=== PATIENT | female | born 1995 | race Caucasian/White ===

== ENCOUNTER 2017-07-20 09:36 | Emergency (ER) | payer MEDICAID ==
[2017-07-20] MEDS ORDERED: OXYCODONE-ACETAMINOPHEN 5-325 MG TABLET PO ONE (09:59)
--- NOTE | 2017-07-20 10:00 | ER Document Report ---
ED Medical Screen (RME) - General Chief Complaint: Abdominal Pain Stated Complaint: ABDOMINAL PAIN Time Seen by Provider: 07/20/17 09:51 Notes: 22-year-old female patient 3 day history of left pelvic pain getting worse despite Tylenol and ibuprofen. Pain radiates into the groin area at times with a numbness sensation. Last menstrual period was last week in June, however her periods have been very irregular recently where she will have., Stop, start bleeding again and stop she does not think she is but it does not sound like she uses control. She does have 2 children. Physical exam shows nearly point tenderness in the left lower quadrant pelvic region. Palpating the right lower quadrant causes pain in the left pelvic region. There is no CVA percussion tenderness. I have greeted and performed a rapid initial assessment of this patient. A comprehensive ED assessment and evaluation of the patient, analysis of test results and completion of the medical decision making process will be conducted by additional ED providers. TRAVEL OUTSIDE OF THE [place] IN LAST 30 DAYS: No - Related Data Allergies/Adverse Reactions: Penicillins Allergy (Verified 07/20/17 09:38) Physical Exam - Vital signs Vitals: Temp Pulse Resp BP Pulse Ox 97.7 F 79 14 125/83 99 07/20/17 09:41 07/20/17 09:41 07/20/17 09:41 07/20/17 09:41 07/20/17 09:41 Course - Vital Signs Vital signs: Temp Pulse Resp BP Pulse Ox 97.7 F 79 14 125/83 99 07/20/17 09:41 07/20/17 09:41 07/20/17 09:41 07/20/17 09:41 07/20/17 09:41
[2017-07-20 10:28] LABS: APPEARANCE,URINE CLEAR; BILIRUBIN,URINE NEGATIVE (NEGATIVE); COLOR,URINE STRAW; GLUCOSE, URINE NEGATIVE (NEGATIVE); KETONES,URINE NEGATIVE (NEGATIVE); LEUKOCYTE ESTERASE,URINE NEGATIVE (NEGATIVE); NITRITE,URINE NEGATIVE (NEGATIVE); PROTEIN,URINE NEGATIVE (NEGATIVE); URINE SPECIFIC GRAVITY 1.003; UROBILINOGEN,URINE NEGATIVE mg/dL (<2.0)
[2017-07-20 10:34] LABS: ABSOLUTE BASOPHILS # (AUTO) 0.1 10^3/uL (0.0-0.2); ABSOLUTE EOSINOPHILS # (AUTO) 0.2 10^3/uL (0.0-0.6); ABSOLUTE LYMPHOCYTES (AUTO) 2.4 10^3/uL (0.5-4.7); ABSOLUTE MONOCYTES (AUTO) 0.5 10^3/uL (0.1-1.4); ABSOLUTE NEUT (AUTO) 4.1 10^3/uL (1.7-8.2); BASOPHILS % (AUTO) 1.2 % (0-2); EOSINOPHILS % (AUTO) 2.8 % (0-6); HEMATOCRIT 37.8 % (36.0-47.0); HEMOGLOBIN 12.3 g/dL (12.0-15.5); LYMPHOCYTES % (AUTO) 32.7 % (13-45); MEAN CORPUSCULAR HEMOGLOBIN 27.1 pg (27.0-33.4); MEAN CORPUSCULAR HGB CONC 32.5 g/dL (32.0-36.0); MEAN CORPUSCULAR VOLUME 84 fl (80-97); PLATELET COUNT 436 10^3/uL (150-450); RED BLOOD COUNT 4.53 10^6/uL (3.72-5.28); SEGMENTED NEUTROPHILS % (AUTO) 56.3 % (42-78); TOTAL CELLS COUNTED % (AUTO) 100 %; WHITE BLOOD COUNT 7.3 10^3/uL (4.0-10.5)
[2017-07-20 10:37] LABS: ALANINE AMINOTRANSFERASE 34 U/L (9-52); ALBUMIN 4.4 g/dL (3.5-5.0); ALKALINE PHOSPHATASE 50 U/L (38-126); ANION GAP 8 (5-19); ASPARTATE AMINO TRANSFERASE 19 U/L (14-36); BILIRUBIN,DIRECT 0.2 mg/dL (0.0-0.4); BILIRUBIN,TOTAL 0.4 mg/dL (0.2-1.3); BLOOD UREA NITROGEN 10 mg/dL (7-20); CALCIUM 9.7 mg/dL (8.4-10.2); CARBON DIOXIDE 28 mmol/L (22-30); CHLORIDE 103 mmol/L (98-107); GLUCOSE 85 mg/dL (75-110); POTASSIUM 4.5 mmol/L (3.6-5.0); SODIUM 139.3 mmol/L (137-145); TOTAL PROTEIN 7.1 g/dL (6.3-8.2)
--- NOTE | 2017-07-20 10:59 | RADIOLOGY REPORT (SQ) ---
EXAM DESCRIPTION: U/S OB TRANSVAGINAL W/O DOP COMPLETED DATE/TIME: 07/20/2017 10:49 am REASON FOR STUDY: L pelvic pain x 3 days, getting worse, Cyst vs ect COMPARISON: None. TECHNIQUE: Transvaginal static and realtime grayscale images acquired of the pelvis. Additional heather cted spectral and color Doppler images recorded. All images stored on PACs. BHCG: Negative LIMITATIONS: None. FINDINGS: UTERUS: No visualized intrauterine . RIGHT ADNEXA: Normal ovary containing dominant follicle in demonstrating normal vascular flow. Mild to moderate free fluid. No adnexal masses. LEFT ADNEXA: Normal ovary with normal vascular flow. Mild to moderate free fluid. No adnexal masses. FREE FLUID: None. OTHER: No other significant finding. IMPRESSION: NO VISUALIZED INTRA- OR EXTRAUTERINE . ECTOPIC IS HIGHLY UNLIKELY GIVEN NEGATIVE TEST. CLINICAL FOLLOWUP RECOMMENDED. MILD TO MODERATE FREE FLUID WHICH IS LIKELY PHYSIOLOGIC AND COULD BE SECONDARY TO A RUPTURED CYST. TECHNICAL DOCUMENTATION: JOB ID: [id number] [employer]- All Rights Reserved
--- NOTE | 2017-07-20 11:28 | ER Document Report ---
ED GI/ - General Chief Complaint: Abdominal Pain Stated Complaint: ABDOMINAL PAIN Time Seen by Provider: 07/20/17 09:51 Mode of Arrival: Ambulatory Information source: Patient Notes: Patient is a 22-year-old female who presents to the ER today for left lower quadrant abdominal pain 2 days. Patient states that it is constant in nature and has given her some nausea but no vomiting. She denies any diarrhea. Burning with urination, being on her menstrual cycle. She denies any fevers or chills. She denies any history of ovarian cysts. She does not think she is but has had a regular periods. She denies any abnormal vaginal discharge. She denies being worried about any STDs. TRAVEL OUTSIDE OF THE [place] IN LAST 30 DAYS: No - Related Data Allergies/Adverse Reactions: Penicillins Allergy (Verified 07/20/17 09:38) Past Medical History - General Information source: Patient - Social History Smoking Status: Current Every Day Smoker Chew tobacco use (# tins/day): No Frequency of alcohol use: Occasional Drug Abuse: None Family History: Reviewed & Not Pertinent Patient has suicidal ideation: No Patient has homicidal ideation: No Renal/ Medical History: Denies: Hx Peritoneal Dialysis Psychiatric Medical History: Reports: Hx Depression Review of Systems - Review of Systems Constitutional: No symptoms reported EENT: No symptoms reported Cardiovascular: No symptoms reported Respiratory: No symptoms reported Gastrointestinal: See HPI Genitourinary: No symptoms reported Female Genitourinary: See HPI Musculoskeletal: No symptoms reported Skin: No symptoms reported Hematologic/Lymphatic: No symptoms reported Neurological/Psychological: No symptoms reported Physical Exam - Vital signs Vitals: Temp Pulse Resp BP Pulse Ox 97.7 F 79 14 125/83 99 07/20/17 09:41 07/20/17 09:41 07/20/17 09:41 07/20/17 09:41 07/20/17 09:41 - Notes Notes: PHYSICAL EXAMINATION: GENERAL: Well-appearing and in no acute distress. HEAD: Atraumatic, normocephalic. NECK: Normal range of motion, supple without lymphadenopathy LUNGS: CTAB and equal. No wheezes rales or rhonchi. HEART: Regular rate and rhythm without murmurs ABDOMEN: Soft, mild left lower quadrant tenderness. No guarding, no rebound BACK: no vertebral tenderness, normal ROM GI/: no CVA tenderness EXTREMITIES: Normal range of motion, no pitting edema. No cyanosis. NEUROLOGICAL: Cranial nerves grossly intact. Normal sensory/motor exams. PSYCH: Normal mood, normal affect. SKIN: Warm, Dry, normal turgor, no rashes or lesions noted Course - Re-evaluation Re-evalutation: 07/21/17 07:48 is negative today, lab work is unremarkable including a normal white blood cell count, pelvic exam was offered to patient but she declined, stating "I am not worried about any pelvic infections." Ultrasound does reveal some free fluid in the pelvis, possible ruptured ovarian cyst. No current ovarian cyst noted. No evidence of ectopic - Vital Signs Vital signs: Temp Pulse Resp BP Pulse Ox 98.1 F 80 14 120/80 100 07/20/17 12:02 07/20/17 12:02 07/20/17 12:02 07/20/17 12:02 07/20/17 12:02 - Laboratory Result Diagrams: 07/20/17 10:05 07/20/17 10:05 Laboratory results interpreted by me: 07/20/17 10:05 RDW 17.0 H Discharge - Discharge Clinical Impression: Ruptured cyst of ovary Condition: Stable Disposition: HOME, SELF-CARE Instructions: Ovarian Cyst ([facility]) Additional Instructions: Return immediately for any new or worsening symptoms. Follow up with primary care provider, call tomorrow to make followup appointment. Forms: Return to Work
[2017-07-20] MEDS ORDERED: HYDROCODONE/ACETAMINOPHEN 5-325 MG (6 TAB/ER DISP) PO PRN (11:29)
[2017-07-20] MEDS ORDERED: ONDANSETRON ODT 4 MG TAB (6 TAB/ER DISP) PO PRN (11:29)
[2017-07-20 12:03] VITALS: BP 120/80
== END 2017-07-20 12:02 | disposition home or self-care (01) ==
LOC: ER 09:36
DX: R10.32 Left lower quadrant pain (principal); N83.209 Unspecified ovarian cyst, unspecified side; R11.0 Nausea; F17.200 Nicotine dependence, unspecified, uncomplicated; Z88.0 Allergy status to penicillin
CPT/HCPCS: 36415; 76817; 80053; 81001; 84703; 85025; 99284

== ENCOUNTER 2017-07-30 10:18 | Emergency (ER) | payer MEDICAID ==
[2017-07-30] MEDS ORDERED: ONDANSETRON 4 MG TAB.RAPDIS PO ONE ×2 (10:50→10:53)
[2017-07-30] MEDS ORDERED: HYDROCODONE/ACETAMINOPHEN 5-325 MG TABLET PO ONE (10:50)
--- NOTE | 2017-07-30 10:53 | ER Document Report ---
ED Medical Screen (RME) - General Chief Complaint: Nausea/Vomiting Stated Complaint: VOMITING Time Seen by Provider: 07/30/17 10:44 Notes: This 22-year-old female patient comes emergency room complaining of aching cramping all over, nasal sinus congestion the past 2 days with fevers last night. She was seen her on 07/20/2017 left pelvic pain, normal lab work, ultrasound showing mild to moderate free fluid suggesting a recently ruptured ovarian cyst. No cysts were seen on ultrasound. She states she has never gotten better and now has these additional symptoms. She also reports she has been vomiting more for the past week and is been unable to keep down fluids. I have greeted and performed a rapid initial assessment of this patient. A comprehensive ED assessment and evaluation of the patient, analysis of test results and completion of the medical decision making process will be conducted by additional ED providers. TRAVEL OUTSIDE OF THE [place] IN LAST 30 DAYS: No - Related Data Allergies/Adverse Reactions: Penicillins Allergy (Verified 07/30/17 10:22) Home Medications: Current Home Medications Fluoxetine HCl 20 mg PO DAILY 07/30/17 [History] Hydroxyzine Pamoate [Hydroxyzine Pamoate] 25 mg PO BID 07/30/17 [History] Past Medical History - Social History Chew tobacco use (# tins/day): No Frequency of alcohol use: Occasional Drug Abuse: None Renal/ Medical History: Denies: Hx Peritoneal Dialysis Psychiatric Medical History: Reports: Hx Depression Physical Exam - Vital signs Vitals: Temp Pulse BP Pulse Ox 98.4 F 91 124/83 98 07/30/17 10:32 07/30/17 10:32 07/30/17 10:32 07/30/17 10:32 Course - Vital Signs Vital signs: Temp Pulse Resp BP Pulse Ox 98.4 F 91 124/83 98 07/30/17 10:32 07/30/17 10:32 07/30/17 10:32 07/30/17 10:32
--- NOTE | 2017-07-30 12:42 | RADIOLOGY REPORT (SQ) ---
EXAM DESCRIPTION: U/S NON-OB PELVIS TV W/O DOP COMPLETED DATE/TIME: 07/30/2017 12:22 pm REASON FOR STUDY: 07/20 mod FF, sx's bloating worse COMPARISON: Pelvic ultrasound 07/20/2017 TECHNIQUE: Dynamic and static grayscale images acquired of the pelvis via transvaginal approach and recorded on PACS. Additional selected color Doppler and spectral images recorded. No test today Negative serum test 07/20/2017 LIMITATIONS: None. FINDINGS: UTERUS: Contour normal. No mass. Uterus is 9.3 x 7.7 x 5.1 cm in size. ENDOMETRIAL STRIPE: No focal or generalized thickening. No masses. Endometrial stripe 8 mm in thickn ess CERVIX: No nabothian cysts. Closed, 3 cm in length. RIGHT OVARY: Right ovary measures 4 x 2.4 x 2.1 cm in size. On today's study, a 2.2 x 1.8 x 1.7 cm h emorrhagic cyst is present (was a nonhemorrhagic simple cyst on 07/20/2017). RIGHT OVARY DOPPLER: Normal arterial vascular flow without evidence for torsion. LEFT OVARY: No abnormal masses. Left ovary 3.3 x 1.4 x 1.6 cm in size LEFT OVARY DOPPLER: Normal arterial vascular flow without evidence for torsion. FREE FLUID: There is moderate free cul-de-sac fluid without echogenic debris OTHER: No other significant finding. IMPRESSION: Moderate free cul-de-sac pelvic fluid without echogenic debris. 2 cm hemorrhagic cyst right ovary. Corpus luteum could not be excluded TECHNICAL DOCUMENTATION: JOB ID: [id number] [employer]- All Rights Reserved
[2017-07-30] MEDS ORDERED: NORMAL SALINE 1000 ML 1,000 ML IV ONE (12:53)
[2017-07-30 13:13] LABS: ABSOLUTE BASOPHILS # (AUTO) 0.1 10^3/uL (0.0-0.2); ABSOLUTE EOSINOPHILS # (AUTO) 0.1 10^3/uL (0.0-0.6); ABSOLUTE LYMPHOCYTES (AUTO) 1.1 10^3/uL (0.5-4.7); ABSOLUTE MONOCYTES (AUTO) 0.8 10^3/uL (0.1-1.4); ABSOLUTE NEUT (AUTO) 4.7 10^3/uL (1.7-8.2); EOSINOPHILS % (AUTO) 1.4 % (0-6); HEMATOCRIT 36.7 % (36.0-47.0); HEMOGLOBIN 12.3 g/dL (12.0-15.5); LYMPHOCYTES % (AUTO) 16.5 % (13-45); MEAN CORPUSCULAR HEMOGLOBIN 27.4 pg (27.0-33.4); MEAN CORPUSCULAR HGB CONC 33.5 g/dL (32.0-36.0); MEAN CORPUSCULAR VOLUME 82 fl (80-97); MONOCYTES % (AUTO) 11.4 % (3-13); PLATELET COUNT 352 10^3/uL (150-450); RED BLOOD COUNT 4.48 10^6/uL (3.72-5.28); RED CELL DISTRIBUTION WIDTH 16.5 % (11.5-14.0); SEGMENTED NEUTROPHILS % (AUTO) 69.7 % (42-78); TOTAL CELLS COUNTED % (AUTO) 100 %; WHITE BLOOD COUNT 6.7 10^3/uL (4.0-10.5)
[2017-07-30 13:16] LABS: CHLAM PCR NOT DETECTED (NOT DETECT); GON PCR NOT DETECTED (NOT DETECT)
--- NOTE | 2017-07-30 13:19 | ER Document Report ---
ED GI/ - General Chief Complaint: Nausea/Vomiting Stated Complaint: VOMITING Time Seen by Provider: 07/30/17 10:44 Notes: The patient is a 22-year-old female, , past medical history anxiety, presents with 1 week of worsening lower abdominal pain, worse on the left side. She is also having nausea, vomiting and said that she is unable to keep any food or liquids down for the past few days. She was seen in the ER on 07/20/2017 with similar symptoms and had normal lab work and an ultrasound showing mild to moderate free fluid suggesting a recently ruptured ovarian cyst. She said that she has not gotten any better since her visit. She denies diarrhea, constipation, fevers, dysuria, hematuria, hematemesis, rash, vaginal discharge or vaginal bleeding. TRAVEL OUTSIDE OF THE [place] IN LAST 30 DAYS: No - Related Data Allergies/Adverse Reactions: Penicillins Allergy (Verified 07/30/17 10:22) Home Medications: Current Home Medications Fluoxetine HCl 20 mg PO DAILY 07/30/17 [History] Hydroxyzine Pamoate [Hydroxyzine Pamoate] 25 mg PO BID 07/30/17 [History] Past Medical History - General Information source: Patient - Social History Smoking Status: Current Every Day Smoker Chew tobacco use (# tins/day): No Frequency of alcohol use: Occasional Drug Abuse: None Family History: Reviewed & Not Pertinent Patient has suicidal ideation: No Patient has homicidal ideation: No Renal/ Medical History: Denies: Hx Peritoneal Dialysis Psychiatric Medical History: Reports: Hx Depression Review of Systems - Review of Systems Notes: REVIEW OF SYSTEMS: CONSTITUTIONAL: -fevers, -chills EENT: -eye pain, -difficulty swallowing, -nasal congestion CARDIOVASCULAR: -chest pain, -syncope. RESPIRATORY: -cough, -SOB GASTROINTESTINAL: +abdominal pain, +nausea, +vomiting, -diarrhea GENITOURINARY: -dysuria, -hematuria MUSCULOSKELETAL: -back pain, -neck pain SKIN: -rash or skin lesions. HEMATOLOGIC: -easy bruising or bleeding. LYMPHATIC: -swollen, enlarged glands. NEUROLOGICAL: -altered mental status or loss of consciousness, -headache, - neurologic symptoms PSYCHIATRIC: -anxiety, -depression. ALL OTHER SYSTEMS REVIEWED AND NEGATIVE. Physical Exam - Vital signs Vitals: Temp Pulse BP Pulse Ox 98.4 F 91 124/83 98 07/30/17 10:32 07/30/17 10:32 07/30/17 10:32 07/30/17 10:32 - Notes Notes: PHYSICAL EXAMINATION: GENERAL: Mild distress. HEAD: Atraumatic, normocephalic. EYES: Pupils equal round and reactive to light, extraocular movements intact, sclera anicteric, conjunctiva are normal. ENT: nares patent, oropharynx clear without exudates. Moist mucous membranes. NECK: Normal range of motion, supple without lymphadenopathy LUNGS: Breath sounds clear to auscultation bilaterally and equal. No wheezes rales or rhonchi. HEART: Regular rate and rhythm without murmurs ABDOMEN: Soft, moderate LLQ and mild RLQ tenderness, normoactive bowel sounds. No guarding, no rebound. No masses appreciated. EXTREMITIES: Normal range of motion, no pitting or edema. No cyanosis. NEUROLOGICAL: Cranial nerves grossly intact. Normal speech, normal gait. Normal sensory and motor exams. PSYCH: Normal mood, normal affect. SKIN: Warm, Dry, normal turgor, no rashes or lesions noted. Course - Re-evaluation Re-evalutation: Patient appears well and has had no more nausea or vomiting after Zofran and her pain is under control. Ultrasound shows free fluid in her pelvis and her known ovarian cyst. Concern for appendix rupture with the free fluid and second ER visit, so CT scan ordered. CT showed the same hemorrhagic cyst with free fluid, but normal appendix and no other acute findings. Blood work and urine are unremarkable. Pt deferred a pelvic exam until she sees her [employer]. Instructed patient to continue anti-inflammatories, Twilight for severe pain, Zofran for any nausea or vomiting and follow-up at the [facility] for further evaluation and treatment. She is comfortable with the plan. - Vital Signs Vital signs: Temp Pulse Resp BP Pulse Ox 98.4 F 91 124/83 98 07/30/17 10:32 07/30/17 10:32 07/30/17 10:32 07/30/17 10:32 - Laboratory Result Diagrams: 07/30/17 11:10 07/30/17 11:10 Laboratory results interpreted by me: 07/30/17 07/30/17 11:10 13:15 RDW 16.5 H Urine Blood SMALL H - Diagnostic Test Radiology reviewed: Image reviewed, Reports reviewed Radiology results interpreted by me: Transvaginal US: Moderate free cul-de-sac pelvic fluid without echogenic debris. 2 cm hemorrhagic cyst right ovary. Corpus luteum could not be excluded. CT A/P: Free fluid is identified in the posterior cul-de-sac which was identified on the recent pelvic ultrasound. Rim enhancing area in the right pelvis which correlates with the hemorrhagic cyst identified on the pelvic ultrasound. No other significant intra-abdominal or pelvic abnormalities were identified. Other findings as noted above. Discharge - Discharge Clinical Impression: Hemorrhagic cyst of ovary Condition: Stable Disposition: HOME, SELF-CARE Additional Instructions: Ovarian Cyst Your examination shows the presence of an ovarian cyst. This is a ball of fluid attached to the ovary. Ovarian cysts in women of child-bearing age are usually innocent. However, the cyst may cause pain when it grows or bursts. An innocent ovarian cyst will usually go away by itself. When the cyst becomes painful, you should rest. Pain medication may be required. Some women find a hot water bottle soothing. The pain usually resolves within one or two days. After menopause, an ovarian cyst may mean a tumor, and requires more aggressive evaluation -- usually surgery is recommended to remove or biopsy the cyst. A very large cyst requires evaluation at any age. Most cysts (even the innocent ones) require follow-up examination. Call the doctor or return at any time if the pain increases significantly, if you become faint, or if you experience vaginal bleeding. Prescriptions: Hydrocodone/Acetaminophen [Twilight 5-325 mg Tablet] 1 tab PO Q6H PRN #10 tablet PRN Reason: Naproxen [Naprosyn 250 mg Tablet] 500 mg PO Q12H PRN #14 tablet PRN Reason: Ondansetron [Zofran Odt 4 mg Tablet] 1 - 2 tab PO Q4H PRN #15 tab.rapdis PRN Reason: For Nausea/Vomiting Referrals: HERMAN IGNACIO MD [ACTIVE STAFF] - Follow up as needed
[2017-07-30 13:38] LABS: ALANINE AMINOTRANSFERASE 24 U/L (9-52); ALBUMIN 4.3 g/dL (3.5-5.0); ALKALINE PHOSPHATASE 63 U/L (38-126); ANION GAP 9 (5-19); ASPARTATE AMINO TRANSFERASE 21 U/L (14-36); BILIRUBIN,DIRECT 0.3 mg/dL (0.0-0.4); BILIRUBIN,TOTAL 0.7 mg/dL (0.2-1.3); BLOOD UREA NITROGEN 10 mg/dL (7-20); CALCIUM 9.6 mg/dL (8.4-10.2); CARBON DIOXIDE 25 mmol/L (22-30); CHLORIDE 104 mmol/L (98-107); GLUCOSE 92 mg/dL (75-110); POTASSIUM 4.2 mmol/L (3.6-5.0); SODIUM 138.2 mmol/L (137-145)
[2017-07-30 13:45] LABS: APPEARANCE,URINE SLIGHTLY-CLOUDY; BILIRUBIN,URINE NEGATIVE (NEGATIVE); COLOR,URINE YELLOW; GLUCOSE, URINE NEGATIVE (NEGATIVE); KETONES,URINE NEGATIVE (NEGATIVE); LEUKOCYTE ESTERASE,URINE NEGATIVE (NEGATIVE); NITRITE,URINE NEGATIVE (NEGATIVE); PROTEIN,URINE NEGATIVE (NEGATIVE); UROBILINOGEN,URINE NEGATIVE mg/dL (<2.0)
--- NOTE | 2017-07-30 14:23 | RADIOLOGY REPORT (SQ) ---
EXAM DESCRIPTION: CT ABD/PELVIS WITH IV ONLY COMPLETED DATE/TIME: 07/30/2017 1:28 pm REASON FOR STUDY: RLQ and LLQ tenderness, free fluid on US COMPARISON: Pelvic ultrasound dated 07/30/2017 TECHNIQUE: CT scan of the abdomen and pelvis performed using helical scanning technique with dynamic intravenous contrast injection. No oral contrast. Images reviewed with lung, soft tissue, and bone windows. Reconstructed coronal and sagittal MPR images reviewed. Delayed images for evaluation of the urinary system also acquired. All images stored on PACS. All CT scanners at this facility use dose modulation, iterative reconstruction, and/or weight based d osing when appropriate to reduce radiation dose to as low as reasonably achievable (ALARA). [facility]: Dose Right [facility]: CareDose [facility]: Dose Right [facility]: Teradose 4D [facility]: [employer], [place] CONTRAST TYPE AND DOSE: 70 mL Isovue 370 RENAL FUNCTION: None required. The patient is less than 50 years old. RADIATION DOSE: . LIMITATIONS: None. FINDINGS: LOWER CHEST: No significant findings. No nodules or infiltrates. LIVER: Normal size. No masses. No dilated ducts. SPLEEN: Normal size. No focal lesions. PANCREAS: No masses. No significant calcifications. No adjacent inflammation or peripancreatic fluid collections. Pancreatic duct not dilated. GALLBLADDER: No identified stones by CT criteria. No inflammatory changes to suggest cholecystitis. ADRENAL GLANDS: No significant masses or asymmetry. RIGHT KIDNEY AND URETER: No solid masses. No significant calcifications. No hydronephrosis or hyd roureter. LEFT KIDNEY AND URETER: No solid masses. No significant calcifications. No hydronephrosis or hydr oureter. AORTA AND VESSELS: No aneurysm. No dissection. Renal arteries, SMA, celiac without stenosis. RETROPERITONEUM: No retroperitoneal adenopathy, hemorrhage or masses. BOWEL AND PERITONEAL CAVITY: No masses or inflammatory changes. No peritoneal masses. APPENDIX: Normal. PELVIS: A rim enhancing area is identified in the right pelvis which correlates with the hemorrhagic cyst identified on the pelvic ultrasound. Free fluid is identified in the posterior cul-de-sac which was identified on the recent pelvic ultrasound. ABDOMINAL WALL: No masses. No hernias. BONES: No significant or acute findings. OTHER: No other significant finding. IMPRESSION: Free fluid is identified in the posterior cul-de-sac which was identified on the recent pelvic ultrasound. Rim enhancing area in the right pelvis which correlates with the hemorrhagic cyst identified on the pelvic ultrasound. No other significant intra-abdominal or pelvic abnormalities w ere identified. Other findings as noted above TECHNICAL DOCUMENTATION: JOB ID: [id number] Quality ID # [id number]: Final reports with documentation of one or more dose reduction techniques (e.g., Au tomated exposure control, adjustment of the mA and/or kV according to patient size, use of iterative reconstruction technique) 2010 [employer]- All Rights Reserved
[2017-07-30 15:15] VITALS: BP 116/67
== END 2017-07-30 15:18 | disposition home or self-care (01) ==
LOC: ER 10:18
DX: N83.201 Unspecified ovarian cyst, right side (principal); R11.2 Nausea with vomiting, unspecified; F17.200 Nicotine dependence, unspecified, uncomplicated; Z88.0 Allergy status to penicillin
CPT/HCPCS: 99284; 96360; 36415; 84703; 85025; 81025; 80053; 81001; 87491; 87591; 83605; 76830; 74177; S0119; J7030

== ENCOUNTER 2017-08-22 19:08 | Emergency (ER) | payer MEDICAID ==
[2017-08-22] MEDS ORDERED: ALBUTEROL SULFATE HFA (90 MCG/PUFF) 8 GM MDI (1 MDI/ER DISP) IH ONE (20:38)
--- NOTE | 2017-08-22 20:40 | ER Document Report ---
ED Medical Screen (RME) - General Chief Complaint: Flank Pain Stated Complaint: FLANK PAIN BOTH SIDES Time Seen by Provider: 08/22/17 20:37 Mode of Arrival: Ambulatory Information source: Patient Notes: 22-year-old female presents to ED for no urination since last night until she got to the ER states she went to the bathroom and urinated. She did not catch this specimen. She states she has had fever and chills for the last 48 hours. She states her temperature is been as high as 101.9 is been taking ibuprofen and NyQuil. She is also was vomiting all day yesterday had some Zofran left over and took one. States she has 3 or 4 those left at home. Last menstrual period was August 06. She has a history of asthma lungs are clear except for a few wheezes in the upper lobes. States she last took ibuprofen 800 mg at 1745 and 400 mg at 8 PM 30. I have greeted and performed a rapid initial assessment of this patient. A comprehensive ED assessment and evaluation of the patient, analysis of test results and completion of medical decision making process will be conducted by an additional ED providers. TRAVEL OUTSIDE OF THE [place] IN LAST 30 DAYS: No - Related Data Allergies/Adverse Reactions: Penicillins Allergy (Verified 08/22/17 19:11) Past Medical History - Social History Chew tobacco use (# tins/day): No Frequency of alcohol use: Social Drug Abuse: None Renal/ Medical History: Denies: Hx Peritoneal Dialysis Psychiatric Medical History: Reports: Hx Depression Physical Exam - Vital signs Vitals: Temp Pulse Resp BP Pulse Ox 99.6 F 94 12 127/84 H 98 08/22/17 19:25 08/22/17 19:25 08/22/17 19:25 08/22/17 19:25 08/22/17 19:25 Course - Vital Signs Vital signs: Temp Pulse Resp BP Pulse Ox 99.6 F 94 12 127/84 H 98 08/22/17 19:25 08/22/17 19:25 08/22/17 19:25 08/22/17 19:25 08/22/17 19:25
[2017-08-22] MEDS ORDERED: ALBUTEROL SULFATE 0.083% NEB 2.5 MG/3 ML AMPUL NEB SCH (20:45)
[2017-08-22 21:31] LABS: ABSOLUTE EOSINOPHILS # (AUTO) 0.2 10^3/uL (0.0-0.6); ABSOLUTE LYMPHOCYTES (AUTO) 2.4 10^3/uL (0.5-4.7); ABSOLUTE NEUT (AUTO) 4.2 10^3/uL (1.7-8.2); BASOPHILS % (AUTO) 0.5 % (0-2); EOSINOPHILS % (AUTO) 2.3 % (0-6); HEMATOCRIT 38.8 % (36.0-47.0); HEMOGLOBIN 12.6 g/dL (12.0-15.5); LYMPHOCYTES % (AUTO) 30.2 % (13-45); MEAN CORPUSCULAR HGB CONC 32.6 g/dL (32.0-36.0); MEAN CORPUSCULAR VOLUME 83 fl (80-97); MONOCYTES % (AUTO) 12.9 % (3-13); PLATELET COUNT 312 10^3/uL (150-450); RED BLOOD COUNT 4.69 10^6/uL (3.72-5.28); RED CELL DISTRIBUTION WIDTH 16.2 % (11.5-14.0); SEGMENTED NEUTROPHILS % (AUTO) 54.1 % (42-78); TOTAL CELLS COUNTED % (AUTO) 100 %; WHITE BLOOD COUNT 7.8 10^3/uL (4.0-10.5)
[2017-08-22 21:45] LABS: ALANINE AMINOTRANSFERASE 18 U/L (9-52); ALBUMIN 4.4 g/dL (3.5-5.0); ALKALINE PHOSPHATASE 65 U/L (38-126); ANION GAP 12 (5-19); ASPARTATE AMINO TRANSFERASE 16 U/L (14-36); BLOOD UREA NITROGEN 9 mg/dL (7-20); CALCIUM 9.4 mg/dL (8.4-10.2); CARBON DIOXIDE 26 mmol/L (22-30); CHLORIDE 103 mmol/L (98-107); GLUCOSE 95 mg/dL (75-110); POTASSIUM 3.7 mmol/L (3.6-5.0); SODIUM 140.8 mmol/L (137-145); TOTAL PROTEIN 6.8 g/dL (6.3-8.2)
[2017-08-22 21:49] LABS: BILIRUBIN,TOTAL < 0.1 mg/dL (0.2-1.3)
[2017-08-22 21:56] LABS: APPEARANCE,URINE CLOUDY; BILIRUBIN,URINE NEGATIVE (NEGATIVE); COLOR,URINE YELLOW; GLUCOSE, URINE NEGATIVE (NEGATIVE); KETONES,URINE NEGATIVE (NEGATIVE); LEUKOCYTE ESTERASE,URINE SMALL (NEGATIVE); NITRITE,URINE NEGATIVE (NEGATIVE); PROTEIN,URINE NEGATIVE (NEGATIVE); URINE SPECIFIC GRAVITY 1.014; UROBILINOGEN,URINE NEGATIVE mg/dL (<2.0)
--- NOTE | 2017-08-22 22:32 | ER Document Report ---
HPI - HPI Pain Level: 5 Notes: Patient is a 22-year-old female with a history of asthma who presents to the ED complaining of fever, body ache, dry nonproductive cough, occasional nasal congestion/discharge 2 days. Patient states that her body ache has been irritating her back as well. Patient states she did have a few episodes of vomiting yesterday but that has since resolved. She has been using over-the- counter meds with some relief. Patient states that she is primarily here to get an inhaler and to get evaluated for the flu. She denies any other significant cardiopulmonary medical history. Denies any headache, neck pain, sore throat, chest pain, palpitations, syncope, shortness of breath, wheeze, dyspnea, abdominal pain, current nausea/vomiting/diarrhea, urinary retention, dysuria, hematuria, loss of control of bowel or bladder, numbness/tingling, saddle anesthesia, muscle paralysis/weakness, or rash. - ROS Systems Reviewed and Negative: Yes All other systems reviewed and negative - DERM Skin Color: Normal, [place] Past Medical History - General Information source: Patient - Social History Smoking Status: Unknown if Ever Smoked Chew tobacco use (# tins/day): No Frequency of alcohol use: Social Drug Abuse: None Family History: Reviewed & Not Pertinent Patient has suicidal ideation: No Patient has homicidal ideation: No Renal/ Medical History: Denies: Hx Peritoneal Dialysis Psychiatric Medical History: Reports: Hx Depression Vertical Provider Document - CONSTITUTIONAL Agree With Documented VS: Yes Notes: PHYSICAL EXAMINATION: GENERAL: Well-appearing, well-nourished and in no acute distress. A&Ox4. Answers questions appropriately. Moves comfortably w/o notable distress HEAD: Atraumatic, normocephalic. EYES: Pupils equal round and reactive to light, extraocular movements intact, sclera anicteric, conjunctiva are normal. ENT: EAC clear b/l. TM's intact b/l without erythema, fluid, or perforation. Nares patent and with clear discharge. oropharynx no erythema without exudates. No tonsilar hypertrophy without erythema or exudate. No palatine shift. Uvula midline. No tongue protrusion. No drooling, hoarseness, or airway compromise. Moist mucous membranes. No sinus tenderness. NECK: Normal range of motion, supple without lymphadenopathy. No rigidity/ meningismus. LUNGS: Breath sounds clear to auscultation bilaterally and equal. No wheezes rales or rhonchi. No retractions HEART: Regular rate and rhythm without murmurs, rubs, gallops. ABDOMEN: Soft, nontender, nondistended abdomen. No guarding, no rebound. No masses appreciated. Normal bowel sounds present. No CVA tenderness bilaterally. No hepatosplenomegaly. NEUROLOGICAL: Normal speech, normal gait. Normal sensory, motor exams PSYCH: Normal mood, normal affect. SKIN: Warm, Dry, normal turgor, no rashes or lesions noted. - INFECTION CONTROL TRAVEL OUTSIDE OF THE [place] IN LAST 30 DAYS: No - RESPIRATORY O2 Sat by Pulse Oximetry: 98 Course - Re-evaluation Re-evalutation: 08/22/17 22:29 Patient is an afebrile, well-hydrated, 22-year-old female who presents ED with acute URI, suspect influenza. Vitals are stable. PE is otherwise unremarkable. CBC, CMP unremarkable for acute pathology. UA showed small leuks and 15 wbc, but i suspect contaminant as she is otherwise asymptomatic. We will hold off on covering her with an antibiotic for her UA until a Cx returns. No other labs or imaging warranted at this time based on H&P. Patient has a h /o asthma, but no other significant cardiopulmonary or immunocompromised medical conditions. Patient's lungs are clear to auscultation bilaterally without tachycardia, hypoxia, or tachypnea. Pt was given two breathing treatments in the ED. Patient is tolerating p.o. without any difficulties. Low suspicion for any meningitis, sepsis, peritonsillar/pharyngeal abscess, respiratory compromise, severe dehydration, or other emergent systemic condition at this time. Patient is aware this condition can change from initial presentation and she needs to monitor symptoms closely. I thoroughly reviewed the risks and benefits as well as side effects of Tamiflu with the patient. Patient still would like a prescription of the Tamiflu. I will send her home with a prescription for an albuterol inhaler as well. Conservative measures otherwise for symptoms. Recheck with your PCM in 3-5 days. Return to the ED with any worsening/concerning symptoms otherwise as reviewed in discharge. Patient is in agreement. - Vital Signs Vital signs: Temp Pulse Resp BP Pulse Ox 99.6 F 94 12 127/84 H 98 08/22/17 19:25 08/22/17 19:25 08/22/17 19:25 08/22/17 19:25 08/22/17 19:25 - Laboratory Result Diagrams: 08/22/17 21:10 08/22/17 21:10 Laboratory results interpreted by me: 08/22/17 08/22/17 08/22/17 21:10 21:10 21:10 RDW 16.2 H Total Bilirubin < 0.1 L Urine Blood SMALL H Ur Leukocyte Esterase SMALL H Discharge - Discharge Clinical Impression: Acute URI, Influenza Condition: Stable Disposition: HOME, SELF-CARE Instructions: Influenza ([facility]), Upper Respiratory Illness ([facility]) Additional Instructions: Maintain adequate fluid intake Take meds as directed tylenol/ibuprofen as needed over the counter cold medication as needed for symptoms Humidified air may help Wash your hands regularly Wear a mask when coughing F/u: with your PCM in 3-5 days for a recheck Return to the ED with any fever, worsening pain, chest pain, palpitations, syncope, worsening RAMSAY, neck pain/stiffness, shortness of breath, wheezing, drooling, trouble swallowing/breathing, abdominal pain, n/v/d, rash, or worsening/concerning symptoms otherwise. Prescriptions: Albuterol Sulfate [Proair HFA Inhalation Aerosol 8.5 gm MDI] 2 puff IH Q4H PRN # 1 mdi PRN Reason: Oseltamivir Phosphate [Tamiflu 75 mg Capsule] 75 mg PO BID #10 capsule Forms: Elevated Blood Pressure Referrals: [facility] [Provider Group] - Follow up as needed [facility] [Provider Group] - Follow up as needed
[2017-08-22 23:05] VITALS: BP 125/78
== END 2017-08-22 23:02 | disposition home or self-care (01) ==
LOC: ER 19:08
DX: J11.1 Influenza due to unidentified influenza virus with other respiratory manifestations (principal); J45.909 Unspecified asthma, uncomplicated
CPT/HCPCS: 36415; 80053; 81001; 81025; 85025; 94640; 99284

== ENCOUNTER 2018-03-09 21:33 | Inpatient (IN) | payer MEDICAID ==
[2018-03-09] MEDS ORDERED: IPRATROPIUM/ALBUTEROL 0.5-2.5 MG/3 ML AMPUL NEB ONE (21:37)
[2018-03-09] MEDS ORDERED: METHYLPREDNISOLONE INJ 125 MG/2 ML SDV ONE (21:42)
[2018-03-09] MEDS ORDERED: ALBUTEROL SULFATE 0.083% NEB 2.5 MG/3 ML AMPUL NEB ONE ×3 (21:42→22:58)
[2018-03-09] MEDS ORDERED: MAGNESIUM SULFATE/D5W 2 GM/200 ML RTUPB IV ONE (21:42)
[2018-03-09] MEDS ORDERED: NORMAL SALINE 1000 ML 1,000 ML IV ONE (21:48)
[2018-03-09] MEDS ORDERED: METHYLPREDNISOLONE INJ 125 MG/2 ML SDV IV ONE (21:49)
[2018-03-09] MEDS: MAGNESIUM SULFATE/D5W 1 GM/100 ML RTUPB IV SCH ×2 (21:50→22:06)
--- NOTE | 2018-03-09 21:51 | ER Document Report ---
ED General - General Chief Complaint: Asthma Exacerbation Stated Complaint: BREATHING DIFFICULTY Time Seen by Provider: 03/09/18 21:48 Notes: Patient is a 23-year-old female with a past medical history of asthma who presents in respiratory distress. Initial history is very limited as the patient is almost completely unable to speak due to her degree of respiratory distress. She states that her symptoms started earlier today and have been progressively worsening. She used her albuterol at home but states that this did not help. No additional history can be obtained due to the degree of distress. Per chart review the patient has been intubated once in the past TRAVEL OUTSIDE OF THE [place] IN LAST 30 DAYS: No - Related Data Allergies/Adverse Reactions: Penicillins Allergy (Verified 08/22/17 19:11) Past Medical History - General Information source: Patient - Social History Smoking Status: Former Smoker Frequency of alcohol use: None Drug Abuse: None Family History: Reviewed & Not Pertinent Renal/ Medical History: Denies: Hx Peritoneal Dialysis Psychiatric Medical History: Reports: Hx Depression Review of Systems - Review of Systems Notes: Constitutional: Negative for fever. HENT: Negative for sore throat. Eyes: Negative for visual changes. Cardiovascular: Negative for chest pain. Respiratory: Positive for shortness of breath. Gastrointestinal: Negative for abdominal pain, vomiting or diarrhea. Genitourinary: Negative for dysuria. Musculoskeletal: Negative for back pain. Skin: Negative for rash. Neurological: Negative for headaches, weakness or numbness. 10 point ROS negative except as marked above and in HPI. Physical Exam - Vital signs Vitals: Resp Pulse Ox 29 H 100 03/09/18 21:41 03/09/18 21:41 Interpretation: Hypoxic, Tachypneic Notes: PHYSICAL EXAMINATION: GENERAL: Moderate to severe respiratory distress, appears extremely uncomfortable HEAD: Atraumatic, normocephalic. EYES: Pupils equal round and reactive to light, extraocular movements intact, sclera anicteric, conjunctiva are normal. ENT: nares patent, oropharynx clear without exudates. Moderately dry mucous membranes. NECK: Normal range of motion, supple without lymphadenopathy LUNGS: Severe tachypnea, distress, intercostal and supraclavicular retractions. Scattered wheezing in the extra Tory phase in all lung santana. Globally diminished air movement throughout. Unable to speak in more than 1-2 words per sentence without taking a breath. HEART: Regular tachycardia without murmurs ABDOMEN: Soft, nontender, normoactive bowel sounds. No guarding, no rebound. No masses appreciated. EXTREMITIES: Normal range of motion, no pitting or edema. No cyanosis. NEUROLOGICAL: No focal neurological deficits. Moves all extremities spontaneously and on command. PSYCH: Moderately anxious SKIN: Warm, Dry, normal turgor, no rashes or lesions noted. Course - Re-evaluation Re-evalutation: 03/09/18 21:49 Patient presents in severe respiratory distress, almost unable to speak. She is breathing approximately 40 times per minute, saturating 90% on room air or intercostal retractions are present. She has air movement throughout but it is tight with diffuse expiratory wheezing in all lung santana. The patient was immediately assessed. She has been immediately placed on a continuous nebulizer of albuterol, ipratropium. An IV will be established and 2 g of magnesium will be rapidly infused over 20 minutes. The patient will also receive 125 mg of Solu-Medrol. We will also start IV fluids. Will continue to reassess the patient at regular intervals. I anticipate that she may require additional interventions including low-dose ketamine and possibly BiPAP. 03/09/18 22:10 Patient has had significant improvement in her work of breathing, continues to have coarse wheezing all lung santana but much improved air movement. Continue on continuous albuterol nebulizers at this point. Will defer BiPAP or ketamine at this time point. Will continue to reassess at regular intervals. Chest x- ray is clear without evidence of a pneumothorax or infiltrate. 03/09/18 22:59 Patient's work of breathing has continued to markedly improve although she continues to have wheezing in all lung santana. 10 mg of additional albuterol has been ordered. Magnesium and Solu-Medrol have already been infused. 03/09/18 23:30 Patient has the best lung examination that I have heard thus far at this point with effectively no wheezing, only mild tachypnea although she remains quite tachycardic likely secondary to the large amount of beta agonist that have been given. Will trial her off nebulizer therapy and monitor for at least 1 hour. 03/10/18 01:32 Patient has been observed for 2 hours off of nebulizers and has unfortunately begun to become tachypneic again. Repeat lung examination shows diffuse wheezing in all lung santana. I have reinitiated a duo nebulizer. At this point the patient has been discussed with the hospitalist for admission as she has failed her observation. - Vital Signs Vital signs: Temp Pulse Resp BP Pulse Ox 98.1 F 27 H 108/46 L 98 03/09/18 22:00 03/10/18 00:01 03/10/18 00:00 03/10/18 00:01 - Laboratory Result Diagrams: 03/09/18 21:35 03/09/18 21:35 Laboratory results interpreted by me: 03/09/18 03/09/18 21:35 21:35 WBC 15.8 H MCV 79 L MCH 25.8 L RDW 18.3 H Absolute Neutrophils 11.9 H Glucose 66 L - Diagnostic Test Radiology reviewed: Image reviewed, Reports reviewed Radiology results interpreted by me: 03/09/18 22:59 Chest x-ray: No acute infiltrate or pneumothorax Critical Care Note - Critical Care Note Total time excluding time spent on procedures (mins): 40 Comments: Critical care time spent obtaining history from patient or surrogate, discussions with consultants, development of treatment plan with patient or surrogate, evaluation of patient's response to treatment, examination of patient , ordering and performing treatments and interventions, ordering and review of laboratory studies, re-evaluation of patient's condition, ordering and review of radiographic studies and review of old charts Discharge - Discharge Clinical Impression: Respiratory distress Asthma exacerbation Qualifiers: Asthma severity: moderate Asthma persistence: persistent Qualified Code(s): J45.41 - Moderate persistent asthma with (acute) exacerbation Condition: Fair Disposition: ADMITTED INPATIENT Admitting Provider: Hospitalist Unit Admitted: Telemetry
[2018-03-09 22:01] LABS: ABSOLUTE BASOPHILS # (AUTO) 0.1 10^3/uL (0.0-0.2); ABSOLUTE EOSINOPHILS # (AUTO) 0.2 10^3/uL (0.0-0.6); ABSOLUTE LYMPHOCYTES (AUTO) 2.7 10^3/uL (0.5-4.7); ABSOLUTE MONOCYTES (AUTO) 0.9 10^3/uL (0.1-1.4); ABSOLUTE NEUT (AUTO) 11.9 10^3/uL (1.7-8.2); BASOPHILS % (AUTO) 0.6 % (0-2); EOSINOPHILS % (AUTO) 1.4 % (0-6); HEMOGLOBIN 12.1 g/dL (12.0-15.5); LYMPHOCYTES % (AUTO) 17.3 % (13-45); MEAN CORPUSCULAR HEMOGLOBIN 25.8 pg (27.0-33.4); MEAN CORPUSCULAR HGB CONC 32.7 g/dL (32.0-36.0); MEAN CORPUSCULAR VOLUME 79 fl (80-97); MONOCYTES % (AUTO) 5.5 % (3-13); PLATELET COUNT 374 10^3/uL (150-450); RED BLOOD COUNT 4.69 10^6/uL (3.72-5.28); RED CELL DISTRIBUTION WIDTH 18.3 % (11.5-14.0); SEGMENTED NEUTROPHILS % (AUTO) 75.2 % (42-78); TOTAL CELLS COUNTED % (AUTO) 100 %; WHITE BLOOD COUNT 15.8 10^3/uL (4.0-10.5)
[2018-03-09 22:14] LABS: ANION GAP 14 (5-19); BLOOD UREA NITROGEN 9 mg/dL (7-20); CARBON DIOXIDE 24 mmol/L (22-30); CHLORIDE 105 mmol/L (98-107); GLUCOSE 66 mg/dL (75-110); POTASSIUM 3.6 mmol/L (3.6-5.0); SODIUM 143.1 mmol/L (137-145)
--- NOTE | 2018-03-09 22:36 | RADIOLOGY REPORT (SQ) ---
EXAM DESCRIPTION: CHEST SINGLE VIEW COMPLETED DATE/TIME: 03/09/2018 10:13 pm REASON FOR STUDY: sob COMPARISON: None. EXAM PARAMETERS: NUMBER OF VIEWS: One view. TECHNIQUE: Single frontal radiographic view of the chest acquired. RADIATION DOSE: NA LIMITATIONS: None. FINDINGS: LUNGS AND PLEURA: No opacities, masses or pneumothorax. No pleural effusion. MEDIASTINUM AND HILAR STRUCTURES: No masses. Contour normal. HEART AND VASCULAR STRUCTURES: Heart normal in size. Normal vasculature. BONES: No acute findings. HARDWARE: None in the chest. OTHER: No other significant finding. IMPRESSION: NO ACUTE RADIOGRAPHIC FINDING IN THE CHEST. TECHNICAL DOCUMENTATION: JOB ID: [id number] [place]-[id number] 2010 [employer]- All Rights Reserved Reading location - IP/workstation name: [email or web address]
[2018-03-09] MEDS ORDERED: KETOROLAC TROMETHAMINE INJ/PF 30 MG/1 ML SDV IV ONE (22:59)
[2018-03-10] MEDS ORDERED: IPRATROPIUM/ALBUTEROL 0.5-2.5 MG/3 ML AMPUL NEB ONE (01:38)
[2018-03-10] MEDS ORDERED: TEMAZEPAM 7.5 MG CAPSULE PO PRN (02:21)
[2018-03-10] MEDS ORDERED: PROMETHAZINE HCL INJ 25 MG/1 ML VIAL IV PRN ×2 (02:21→14:30)
[2018-03-10] MEDS ORDERED: LEVALBUTEROL HCL NEB 0.63 MG/3 ML AMPUL NEB PRN (02:21)
[2018-03-10] MEDS ORDERED: MAG HYDROX/AL HYDROX/SIMETH SUSP 30 ML UDCUP PO PRN (02:21)
[2018-03-10] MEDS ORDERED: ACETAMINOPHEN 325 MG TABLET PO PRN (02:21)
[2018-03-10] MEDS: KETOROLAC TROMETHAMINE INJ/PF 30 MG/1 ML SDV IV PRN ×3 (02:39→20:09)
--- NOTE | 2018-03-10 02:41 | PDOC H&P ---
History of Present Illness Admission Date/PCP: 03/10/18 01:45 None Patient complains of: SOB History of Present Illness: HARLEY REBOLLEDO is a 23 year old female who comes to the emergency department with worsening shortness of breath. Tells me that for the last 10 days she quit smoking as she was feeling her asthma flaring. 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 She went home and she could barely breathe, she was unable to speak in full sentences, was severely wheezing, this was associated with chills and nausea along with runny nose. Denies a sputum, fever, vomiting. She used to have Ventolin at home but ran out of these inhaler and she does not follow with any primary care provider. The emergency department noted very tachypneic at 40 bpm, using intercostal muscles, patient has history of intubation in the past, given 125 mg of IV Solu- Medrol, IV magnesium. The patient improved, was observed for 2 hours with no nebulizer treatments and was becoming tachypneic again. By the time I went to see her she was doing better, saturating 100% on room air. Still mild tachypneic with wheezing. Past Medical History Pulmonary Medical History: Reports: Asthma Psychiatric Medical History: Reports: Depression Past Surgical History Past Surgical History: Reports: None Social History Smoking Status: Former Smoker - Patient stop smoking for the last 10 days as she was feeling sick Frequency of Alcohol Use: Rare Hx Recreational Drug Use: No Past Social History Note: Patient lives with her and 2 kids. Family History Family History: Reviewed & Not Pertinent Parental Family History Reviewed: No Children Family History Reviewed: NA Sibling(s) Family History Reviewed.: NA Medication/Allergy Home Medications: Fluoxetine HCl 20 mg PO DAILY 07/30/17 Hydrocodone/Acetaminophen [[place] 5-325 mg Tablet] 1 tab PO Q6H PRN #10 tablet Hydroxyzine Pamoate [Hydroxyzine Pamoate] 25 mg PO BID 07/30/17 Naproxen [Naprosyn 250 mg Tablet] 500 mg PO Q12H PRN #14 tablet 07/30/17 Ondansetron [Zofran Odt 4 mg Tablet] 1 - 2 tab PO Q4H PRN #15 tab.rapdis Albuterol Sulfate [Proair HFA Inhalation Aerosol 8.5 gm MDI] 2 puff IH Q4H PRN # 1 mdi 08/22/17 Oseltamivir Phosphate [Tamiflu 75 mg Capsule] 75 mg PO BID #10 capsule 08/22/17 Allergies/Adverse Reactions: Penicillins Allergy (Verified 08/22/17 19:11) Review of Systems Review of Systems: As outlined in the HPI, all others negative Physical Exam Vital Signs: Temp Pulse Resp BP Pulse Ox 98.1 F 27 H 108/46 L 98 03/09/18 22:00 03/10/18 00:01 03/10/18 00:00 03/10/18 00:01 Additional comments: General appearance: Well-developed, well-nourished, alert and cooperative, and appears to be in no acute distress Head: Normocephalic Eyes: PEERL, EOMI, vision is grossly intact. Ears: External auditory canal and tympanic membranes clear, hearing grossly intact. Nose: No nasal discharge. Throat: Oral cavity and pharynx normal. No inflammation, swelling, exudate or lesions. Neck: Neck supple, nontender without lymphadenopathy, masses or thyromegaly. Cardiac: Normal S1 and S2. No S3, S4 or murmurs. Rhythm is regular. There is no peripheral edema, cyanosis or pallor. Extremities are warm and well perfused. Capillary refill is less than 2 seconds. No carotid bruits. Lungs: Bilateral air entry with mild to moderate wheezing, do not appreciate rhonchi or crackles or diminished breath sounds. Not using accessory muscles. Abdomen: Positive bowel sounds. Soft. Nondistended, nontender. No guarding or rebound. No masses. No hepatosplenomegaly Extremities: No significant deformity or joint abnormality. No edema. Peripheral pulses intact. No varicosities. Neurological: Cranial nerves II through XII grossly intact. Strength and sensation symmetric and intact throughout. Reflexes 2+ throughout. Skin: Skin normal color, texture and turgor with no lesions or eruptions, warm and dry. Psychiatric: The mental examination revealed the patient was oriented to person , place, and time. The patient was able to demonstrate good judgment on recent , without hallucinations, abnormal affect or abnormal behaviors. Results Laboratory Results: 03/09/18 03/09/18 21:35 21:35 WBC 15.8 H RBC 4.69 Hgb 12.1 Hct 37.0 MCV 79 L MCH 25.8 L MCHC 32.7 RDW 18.3 H Plt Count 374 Seg Neutrophils % 75.2 Lymphocytes % 17.3 Monocytes % 5.5 Eosinophils % 1.4 Absolute Neutrophils 11.9 H Absolute Lymphocytes 2.7 Absolute Monocytes 0.9 Absolute Eosinophils 0.2 Absolute Basophils 0.1 Sodium 143.1 Potassium 3.6 Chloride 105 Carbon Dioxide 24 Anion Gap 14 BUN 9 Creatinine 0.75 Est GFR ( Amer) > 60 Est GFR (Non-Af Amer) > 60 Glucose 66 L Calcium 10.0 Impressions: Chest X-Ray 03/09/18 21:49 IMPRESSION: NO ACUTE RADIOGRAPHIC FINDING IN THE CHEST. Assessment & Plan - Diagnosis (1) Asthma exacerbation Qualifiers: Asthma severity: moderate Asthma persistence: persistent Qualified Code(s ): J45.41 - Moderate persistent asthma with (acute) exacerbation Is this a current diagnosis for this admission?: Yes Plan: Patient comes initially on respiratory distress secondary to asthma exacerbation. Several doses of nebulizer treatments given along with IV steroids and IV magnesium. Patient notably improved but not enough to go home. We will give the patient under observation, on telemetry monitoring, with Xopenex as needed as her heart rate has increased between 100- 120s, will continue with IV steroids. Oxygen protocol via nasal cannula. I anticipate patient will probably be ready to be discharged this evening. - Time Time Spent: 30 to 50 Minutes
[2018-03-10] MEDS ORDERED: MORPHINE SULFATE 10 MG/ML INJ ONE (04:10)
[2018-03-10] MEDS ORDERED: MORPHINE SULFATE 10 MG/ML INJ IV ONE (05:00)
[2018-03-10] MEDS: METHYLPREDNISOLONE INJ 125 MG/2 ML SDV IV SCH ×2 (06:04→14:57)
--- NOTE | 2018-03-10 08:01 | EKG REPORT ---
SEVERITY:- BORDERLINE ECG - SINUS RHYTHM PROBABLE LEFT ATRIAL ABNORMALITY : Confirmed by: Jl Santos MD 10-Mar-2018 08:01:25
[2018-03-10] MEDS ORDERED: ENOXAPARIN SODIUM INJ 40 MG/0.4 ML DISP.SYRIN SUBCUT SCH (10:00)
[2018-03-10] MEDS ORDERED: ALPRAZOLAM 0.5 MG TABLET PO ONE (11:49)
--- NOTE | 2018-03-10 13:11 | EKG REPORT ---
SEVERITY:- BORDERLINE ECG - SINUS RHYTHM PROBABLE LEFT ATRIAL ABNORMALITY : Confirmed by: Jl Santos MD 10-Mar-2018 13:10:29
[2018-03-10] MEDS ORDERED: LEVALBUTEROL HCL NEB 1.25 MG/3 ML AMPUL NEB PRN (13:22)
--- NOTE | 2018-03-10 16:10 | RADIOLOGY REPORT (SQ) ---
EXAM DESCRIPTION: CTA CHEST COMPLETED DATE/TIME: 03/10/2018 4:00 pm REASON FOR STUDY: eval for PE, nodules, interstitial disease COMPARISON: None. TECHNIQUE: CT scan of the chest performed using helical scanning technique with dynamic intravenous contrast injection. Images reviewed with lung, soft tissue and bone windows. Reconstructed coronal and sagittal MPR images reviewed. Additional 3 dimensional post-processing performed to develop Maximal Intensity Projection images (TX P). All images stored on PACS. All CT scanners at this facility use dose modulation, iterative reconstruction, and/or weight based d osing when appropriate to reduce radiation dose to as low as reasonably achievable (ALARA). [facility]: Dose Right [facility]: CareDose [facility]: Dose Right [facility]: Teradose 4D [facility]: Audiotoniq CONTRAST TYPE AND DOSE: contrast/concentration: Isovue 350.00 mg/ml; Total Contrast Delivered: 65.0 ml; Total Saline Delivered: 100.0 ml Contrast bolus optimized for the pulmonary arteries. Not diagnostic for the aorta. RENAL FUNCTION: GFR > 60. RADIATION DOSE: CT Rad equipment meets quality standard of care and radiation dose reduction techniq ues were employed. CTDIvol: 14.3 - 16.5 mGy. DLP: 533 mGy-cm. . LIMITATIONS: None. FINDINGS: LUNGS AND PLEURA: No masses, infiltrates, or pneumothorax. No pleural effusions or pleura l calcifications. AORTA AND GREAT VESSELS: No aneurysm. Contrast bolus not optimized for the aorta. HEART: No pericardial effusion. No significant coronary artery calcifications. PULMONARY ARTERIES: No emboli visualized in the main pulmonary arteries or the segmental branches. HILAR AND MEDIASTINAL STRUCTURES: No identified masses or abnormal nodes. HARDWARE: None in the chest. UPPER ABDOMEN: No significant findings. Limited exam. THYROID AND OTHER SOFT TISSUES: No masses. No adenopathy. BONES: No acute or significant finding. 3D MIPS: Confirm above findings. OTHER: No other significant finding. IMPRESSION: NORMAL CTA OF THE CHEST. NO PULMONARY EMBOLI. COMMENT: Quality ID # [id number]: Final reports with documentation of one or more dose reduction techniques (e.g., Automated exposure control, adjustment of the mA and/or kV according to patient size, use of iterative reconstruction technique) TECHNICAL DOCUMENTATION: JOB ID: [id number] [employer]- All Rights Reserved Reading location - IP/workstation name: [email or web address]
[2018-03-10 17:56] VITALS: BP 121/70
[2018-03-10] MEDS ORDERED: LANSOPRAZOLE 30 MG TAB.RAP.DR PO SCH (19:00)
[2018-03-10] MEDS ORDERED: ALBUTEROL SULFATE HFA (90 MCG/PUFF) 200 PUFF/8.5 GM MDI IH PRN (21:00)
[2018-03-10] MEDS ORDERED: FLUTICASONE/SALMETEROL DISKUS 250-50 MCG/DOSE IH SCH (22:00)
--- NOTE | 2018-03-10 23:07 | Progress Note ---
<RELL MCINTYRE - Last Filed: 03/10/18 23:04> Provider Note Provider Note: 23 y.o. 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 Moderate wheezing in all lung santana. Patient appears comfortable resting in bed on room air. The patient states that DuoNebs make her feel anxious and jittery, nursing staff reports tachycardia associated with Duonebs. Agree with heeler's plan of care: 1. Acute respiratory distress: Secondary to asthma exacerbation. Supplemental O2 for SPO2<93%. Scheduled steroids. Scheduled and PRN nebulizers (Duoneb or xopenex). Endorses dry cough. Consulted pulmonary, Dr. Esquivel, appreciate his recommendations. 2. Chest pain: Patient reports R anterior chest wall pain with inhalation, plan for CT to r/o PE. EKG shows STach. Troponin < 0.012. 3. Anxiety: PRN xanax <MAIKEL TREADWELL - Last Filed: 03/18/18 18:35> Assessment/Plan - Assessment/Plan Assessment: I have discussed this patient with MARY LOU Mcintyre. I am in agreement with her evaluation and plan.
--- NOTE | 2018-03-11 08:26 | PROGRESS NOTE E ---
Progress Note NAME: HARLEY REBOLLEDO : 1995 AGE: 23Y DATE: 03/10/2018 ROOM: 414 SUBJECTIVE: The patient is a 23-year-old female who came in with severe distress, wheezing, chest tightness, following exposure at work to chemicals and bleach and cleaning agents. The patient was able to go home, but her breathing got worse and thus the patient went to the emergency room. When in the emergency room, the patient was tachypneic, breathing about 40 breaths per minute, using intercostal muscles. The patient was given nebulizer treatment, IV Solu-Medrol 125 mg, and IV magnesium. Appeared to improve. However, later upon reevaluation, the patient was still tachypneic and wheezing, and the patient was admitted. The patient has a history of endotracheal intubation in the past. PAST MEDICAL HISTORY: 1. History of severe asthma requiring endotracheal intubation. 2. History of depression. 3. No history of narcotic use. PAST SURGICAL HISTORY: None. SOCIAL HISTORY: The patient quit smoking about 10 days ago. Drinks alcohol occasionally. Denies illicit drug use. The patient lives with her and 2 kids. FAMILY HISTORY: Unremarkable. ALLERGIES: Penicillin. MEDICATIONS AT HOME: 1. Fluoxetine. 2. [place]. 3. Hydroxyzine. 4. Naproxen. 5. Zofran. 6. Albuterol inhaler. REVIEW OF SYSTEMS: Constitutional: No fever or chills. Eyes: No eye pain or blurry vision. ENT: No ear drainage, no nasal discharge. Respirations: Shortness of breath and chest tightness and wheezing a few hours prior to this admission following exposure to bleach and chemicals at work. 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 Cardiac: No chest pain, no arrhythmias. GI: No nausea or vomiting. : No dysuria. Extremities: No joint swelling. OBJECTIVE: GENERAL: The patient is awake, alert, oriented, coherent. Afebrile. Not in acute respiratory distress. VITAL SIGNS: Temperature 98.6, heart rate 83, blood pressure 121/70, saturation 99% on room air. EYES: No conjunctival pallor. ENT: No ear drainage. No nasal discharge. HEAD/NECK: No scalp tenderness. Neck supple. CHEST/LUNGS: No wheezing noted. Intermittent rhonchi bilaterally. No coarse crackles. CARDIOVASCULAR: S1, S2. No S3 or S4. ABDOMEN: Flabby. Positive bowel sounds. Soft, nondistended, nontender. EXTREMITIES: No joint swelling or cellulitis. LABORATORY: CBC done today showed white count of 15.8, hemoglobin 12.1, hematocrit 37, platelets 384. Chemistry shows sodium 143, potassium 3.6, chloride 105, CO2 of 24, BUN 9, creatinine 0.75, glucose 66, calcium 6. Chest CT scan was done, showing no apparent blood clots in the large pulmonary arteries. Segmental arteries appeared to be normal. No clots noted. Lung parenchyma is normal. There is no sign of pneumonia or scarring or pulmonary fibrosis or signs of pleural effusion. No pneumothorax. ASSESSMENT: 1. BRONCHIAL ASTHMA. Acute severe exacerbation. Appeared to be improving. 2. DEPRESSION. 3. CHRONIC NARCOTIC USE. 4. CHRONIC BODY PAIN. PLAN: 1. Start the patient on Advair 250 one puff daily. 2. Albuterol inhaler 2 puffs every 4-6 hours as needed. Inhaler at bedside. 3. Start the patient on Prevacid 30 mg once daily. 4. The patient may be able to go home tomorrow. DISCHARGE MEDICATIONS: 1. Advair 250 one puff twice daily. 2. Albuterol inhaler as needed. 3. Albuterol nebulizer for machine. 4. Prednisone 20 mg tablet daily for 5 days. 5. Z-Raad 2 tablets first day and 1 tablet daily after. I will sign off tonight. If you have any questions, please feel free to call me. DICTATING PHYSICIAN: JESSA CORTÉS MD,JENNIFER,MPH [id number] 2013 PHY#: [id number] ID: [id number] JOB#: [id number] ACCT: [id number] cc: > MTDD
--- NOTE | 2018-05-06 06:00 | Progress Note ---
Provider Note Provider Note: Nurse informed me that the patient wants to leave AMA during the night. Patient alert and oriented x4, sign out AMA and left with her .
== END 2018-03-10 21:30 | disposition left against medical advice (07) | DRG 203 ==
LOC: ER 21:33 → INTOOBSV 03-10 01:45 → EH 03-10 01:45 → OBSVTOIN 03-10 14:20 → 4N 03-10 17:43
PROVIDERS: ADMIT Internal Medicine; ATTEND Internal Medicine
PROC: 3E0F73Z Introduction of Anti-inflammatory into Respiratory Tract, Via Natural or Artificial Opening (ICD-10-PCS; principal; 2018-03-10)
DX: J45.41 Moderate persistent asthma with (acute) exacerbation (principal); F32.9 Major depressive disorder, single episode, unspecified; F11.90 Opioid use, unspecified, uncomplicated; G89.29 Other chronic pain; Z87.891 Personal history of nicotine dependence; Z79.899 Other long term (current) drug therapy; Z88.0 Allergy status to penicillin
CPT/HCPCS: 36415; 71045; 71275; 80048; 84703; 85025; 93005; 93010; 94640; 96361; 96365; 96375; 99291; G0378; J1650; J1885; J2270; J2930; J3475; J3490; J7030; J7614; J7620

== ENCOUNTER 2018-06-20 11:12 | Emergency (ER) | payer MEDICAID ==
[2018-06-20] MEDS ORDERED: HYDROCODONE/ACETAMINOPHEN 5-325 MG TABLET PO ONE (11:53)
--- NOTE | 2018-06-20 11:54 | RADIOLOGY REPORT (SQ) ---
EXAM DESCRIPTION: ANKLE LEFT COMPLETE COMPLETED DATE/TIME: 06/20/2018 11:38 am REASON FOR STUDY: fell turned left ankle pain COMPARISON: None. NUMBER OF VIEWS: Three views. TECHNIQUE: AP, lateral, and oblique radiographic images acquired of the left ankle. LIMITATIONS: None. FINDINGS: MINERALIZATION: Normal. BONES: No acute fracture or dislocation. No worrisome bone lesions. JOINTS: No effusions. SOFT TISSUES: No soft tissue swelling. No foreign body. OTHER: No other significant finding. IMPRESSION: NEGATIVE STUDY OF THE LEFT ANKLE. NO RADIOGRAPHIC EVIDENCE OF ACUTE INJURY. TECHNICAL DOCUMENTATION: JOB ID: [id number] [employer]- All Rights Reserved Reading location - IP/workstation name: [email or web address]
--- NOTE | 2018-06-20 11:55 | ER Document Report ---
HPI - HPI Patient complains to provider of: Ankle injury Time Seen by Provider: 06/20/18 11:46 Onset: Yesterday Quality of pain: Achy Pain Level: 5 Context: Patient reports slipping on the floor yesterday rolling her left ankle. Patient complains of left ankle pain that radiates into the foot area. Patient denies any other injuries. Associated Symptoms: Other - Left ankle injury Exacerbated by: Standing, Movement, Walking Relieved by: Denies Similar symptoms previously: No Recently seen / treated by doctor: No - ROS ROS below otherwise negative: Yes Systems Reviewed and Negative: Yes All other systems reviewed and negative - NEURO Neurology: DENIES: Weakness - GASTROINTESTINAL Gastrointestinal: DENIES: Nausea, Patient vomiting - REPRODUCTIVE Reproductive: DENIES: : - MUSCULOSKELETAL Musculoskeletal: REPORTS: Extremity pain. DENIES: Swelling - DERM Skin Color: Normal Skin Problems: None Past Medical History - General Information source: Patient - Social History Smoking Status: Never Smoker Frequency of alcohol use: Occasional Drug Abuse: None Occupation: None Lives with: Spouse/Significant other Family History: Reviewed & Not Pertinent Pulmonary Medical History: Reports: Hx Asthma Renal/ Medical History: Denies: Hx Peritoneal Dialysis Psychiatric Medical History: Denies: Hx Depression Surgical Hx: Negative Vertical Provider Document - CONSTITUTIONAL Agree With Documented VS: Yes Exam Limitations: No Limitations General Appearance: WD/WN, No Apparent Distress - INFECTION CONTROL TRAVEL OUTSIDE OF THE [place] IN LAST 30 DAYS: No - HEENT HEENT: Atraumatic, Normocephalic - NECK Neck: Normal Inspection - RESPIRATORY Respiratory: Breath Sounds Normal, No Respiratory Distress - CARDIOVASCULAR Cardiovascular: Regular Rate, Regular Rhythm Pulses: Normal: Dorsalis pedis - MUSCULOSKELETAL/EXTREMETIES Musculoskeletal/Extremeties: MAEW, FROM, Tender - Left ankle tenderness over lateral malleolar area. Mild tenderness to midfoot and left great toe, No Edema , Eccymosis - Faint ecchymosis to lateral left ankle - NEURO Level of Consciousness: Awake, Alert, Appropriate Motor/Sensory: No Motor Deficit - DERM Integumentary: Warm, Dry, No Rash Course - Vital Signs Vital signs: Temp Pulse Resp BP Pulse Ox 98.5 F 98 18 119/85 98 06/20/18 11:19 06/20/18 11:19 06/20/18 11:19 06/20/18 11:19 06/20/18 11:19 - Diagnostic Test Radiology reviewed: Image reviewed, Reports reviewed Procedures - Immobilization Left Ankle Pre-Proc Neuro Vasc Exam: Normal Immobilizer type: Ankle stirrup Performed by: PCT Post-Proc Neuro Vasc Exam: Normal Alignment checked and good: Yes Discharge - Discharge Clinical Impression: Left foot pain Left ankle sprain Qualifiers: Encounter type: initial encounter Involved ligament of ankle: unspecified ligament Qualified Code(s): S93.402A - Sprain of unspecified ligament of left ankle, initial encounter Condition: Stable Disposition: HOME, SELF-CARE Instructions: Ankle Stirrup Splint ([facility]), Use of Crutches ([facility]), Family Physicians / Practices, Ice & Elevation (OM), Sprained Ankle ([facility]) Additional Instructions: Return immediately for any new or worsening symptoms Followup with your primary care provider, call tomorrow to make a followup appointment Weightbearing as tolerated Follow-up with orthopedics for any persistent pain or problems Prescriptions: Naproxen [Naprosyn 250 Nmg Tablet] 1 tab PO BID #14 tablet Referrals: [facility] ([facility]) [Provider Group] - Follow up as needed
[2018-06-20 12:20] VITALS: BP 112/74
--- NOTE | 2018-06-20 12:33 | RADIOLOGY REPORT (SQ) ---
EXAM DESCRIPTION: FOOT LEFT COMPLETE COMPLETED DATE/TIME: 06/20/2018 12:18 pm REASON FOR STUDY: fall, foot pain fall, acute injury with pain across the top of the foot extending laterally COMPARISON: None. NUMBER OF VIEWS: Three views. TECHNIQUE: AP, lateral and oblique radiographic images acquired of the left foot. LIMITATIONS: None. FINDINGS: MINERALIZATION: Normal. BONES: No acute fracture or dislocation. No worrisome bone lesions. JOINTS: No effusions. SOFT TISSUES: No soft tissue swelling. No foreign body. OTHER: No other significant finding. IMPRESSION: NEGATIVE STUDY OF THE LEFT FOOT. NO RADIOGRAPHIC EVIDENCE OF ACUTE INJURY. TECHNICAL DOCUMENTATION: JOB ID: [id number] [employer]- All Rights Reserved Reading location - IP/workstation name: [email or web address]
== END 2018-06-20 12:53 | disposition home or self-care (01) ==
LOC: ER 11:12
PROC: 2W3RX1Z Immobilization of Left Lower Leg using Splint (ICD-10-PCS; principal; 2018-06-20)
DX: S93.402A Sprain of unspecified ligament of left ankle, initial encounter (principal); M25.572 Pain in left ankle and joints of left foot; M79.672 Pain in left foot; W01.0XXA Fall on same level from slipping, tripping and stumbling without subsequent striking against object, initial encounter; J45.909 Unspecified asthma, uncomplicated
CPT/HCPCS: 99283; 73610; 73630; 29515; L1902

== ENCOUNTER 2019-08-22 20:57 | Emergency (ER) | payer MEDICAID ==
[2019-08-22] MEDS ORDERED: HYDROMORPHONE HCL INJ/PF 2 MG/ML AMPULE IV ONE (22:03)
[2019-08-22] MEDS ORDERED: LORAZEPAM INJ 2 MG/1 ML VIAL IV ONE (22:04)
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
[2019-08-22 22:48] LABS: ABSOLUTE LYMPHOCYTES (AUTO) 1.5 10^3/uL (0.5-4.7); ABSOLUTE MONOCYTES (AUTO) 0.7 10^3/uL (0.1-1.4); ABSOLUTE NEUT (AUTO) 14.6 10^3/uL (1.7-8.2); BASOPHILS % (AUTO) 0.2 % (0-2); HEMATOCRIT 39.6 % (36.0-47.0); LYMPHOCYTES % (AUTO) 8.7 % (13-45); MEAN CORPUSCULAR HEMOGLOBIN 26.5 pg (27.0-33.4); MEAN CORPUSCULAR HGB CONC 32.9 g/dL (32.0-36.0); MEAN CORPUSCULAR VOLUME 81 fl (80-97); MONOCYTES % (AUTO) 4.1 % (3-13); PLATELET COUNT 464 10^3/uL (150-450); RED BLOOD COUNT 4.92 10^6/uL (3.72-5.28); RED CELL DISTRIBUTION WIDTH 18.3 % (11.5-14.0); TOTAL CELLS COUNTED % (AUTO) 100 %; WHITE BLOOD COUNT 16.8 10^3/uL (4.0-10.5)
[2019-08-22 23:05] LABS: ALBUMIN 4.3 g/dL (3.5-5.0); ALKALINE PHOSPHATASE 63 U/L (38-126); ANION GAP 13 (5-19); ASPARTATE AMINO TRANSFERASE 24 U/L (14-36); BILIRUBIN,DIRECT 0.3 mg/dL (0.0-0.4); BILIRUBIN,TOTAL 0.3 mg/dL (0.2-1.3); BLOOD UREA NITROGEN 8 mg/dL (7-20); CALCIUM 9.1 mg/dL (8.4-10.2); CARBON DIOXIDE 23 mmol/L (22-30); CHLORIDE 113 mmol/L (98-107); GLUCOSE 95 mg/dL (75-110); POTASSIUM 4.1 mmol/L (3.6-5.0); TOTAL PROTEIN 7.4 g/dL (6.3-8.2)
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
--- NOTE | 2019-08-22 23:32 | RADIOLOGY REPORT (SQ) ---
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 COMPARISON: None. TECHNIQUE: CT scan of the chest, abdomen, and pelvis with IV contrast. This exam was performed according to our departmental dose-optimization program, which includes automated exposure control, adjustment of the mA and/or kV according to patient size and/or use of iterative reconstruction technique. FINDINGS: CHEST: The heart size is normal without pericardial effusion. No thoracic aortic aneurysm or dissection. No mediastinal hematoma is seen. No pulmonary contusion, pleural effusion, or pneumothorax. ABDOMEN/PELVIS: The abdominal and pelvic solid and hollow viscus organs are grossly unremarkable without evidence of acute findings. Small bowel free fluid, nonspecific. No intraperitoneal free air is seen. No abdominal aortic aneurysm or dissection. MUSCULOSKELETAL: No acute fracture of the thoracolumbar spine. The bony pelvis is intact. No rib fractures are seen. The sternum is also intact. No body wall soft tissue contusion or hematoma. IMPRESSION: 1. No evidence of solid or hollow viscus injury. 2. No acute fracture. 3. Trace pelvic free fluid, nonspecific but likely physiologic.
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
[2019-08-23] MEDS ORDERED: MORPHINE SULFATE 10 MG/ML INJ IV ONE (00:58)
[2019-08-23] MEDS ORDERED: HYDROCODONE/ACETAMINOPHEN 5-325 MG (6 TAB/ER DISP) PO PRN (02:03)
[2019-08-23 02:23] VITALS: BP 112/65
== END 2019-08-23 02:24 | disposition home or self-care (01) ==
LOC: EEVIPCON 20:57 → ER 20:57
DX: T76.11XA Adult physical abuse, suspected, initial encounter (principal); S05.11XA Contusion of eyeball and orbital tissues, right eye, initial encounter; M79.10 Myalgia, unspecified site; M54.9 Dorsalgia, unspecified; R51 Headache; M54.2 Cervicalgia; Y04.8XXA Assault by other bodily force, initial encounter; J45.909 Unspecified asthma, uncomplicated
CPT/HCPCS: 36415; 85025; 80053; 70450; 70486; 71260; 72125; 74177; J2270; J1170; J2060; 96374; 96375; 99284

== ENCOUNTER 2019-09-23 00:39 | Emergency (ER) | payer MEDICAID ==
[2019-09-23] MEDS ORDERED: ONDANSETRON 4 MG TAB.RAPDIS PO ONE (01:09)
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
[2019-09-23] MEDS ORDERED: ACETAMINOPHEN 325 MG TABLET PO ONE (01:10)
[2019-09-23] MEDS ORDERED: HYDROCODONE/ACETAMINOPHEN 5-325 MG (6 TAB/ER DISP) PO PRN (02:46)
--- NOTE | 2019-09-23 02:47 | ER Document Report ---
ED General - General Chief Complaint: Foot Pain Stated Complaint: LEFT FOOT INJURY Time Seen by Provider: 09/23/19 00:55 Mode of Arrival: Ambulatory Information source: Patient Notes: 24-year-old woman presents to the emergency department with a injury to her left foot. She states that she was walking in the house and foot hit the edge of a table and her foot rolled on itself. She felt a sharp pain and notes that the fourth left toe is swollen and discolored. She complains of pain severe and radiating into her left leg. She denies injury to the ankle. TRAVEL OUTSIDE OF THE [place] IN LAST 30 DAYS: No - Related Data Allergies/Adverse Reactions: Penicillins Allergy (Verified 06/20/18 11:14) Home Medications: Xanax Past Medical History - Social History Smoking Status: Current Every Day Smoker Chew tobacco use (# tins/day): No Frequency of alcohol use: Occasional Drug Abuse: Marijuana Family History: Reviewed & Not Pertinent Patient has suicidal ideation: No Patient has homicidal ideation: No Pulmonary Medical History: Reports: Hx Asthma Renal/ Medical History: Denies: Hx Peritoneal Dialysis Psychiatric Medical History: Reports: Hx Anxiety Denies: Hx Depression Review of Systems - Review of Systems Notes: Constitutional: Negative for fever. HENT: Negative for sore throat. Eyes: Negative for visual changes. Cardiovascular: Negative for chest pain. Respiratory: Negative for shortness of breath. Gastrointestinal: Negative for abdominal pain, vomiting or diarrhea. Genitourinary: Negative for dysuria. Musculoskeletal: + Left foot pain Skin: Negative for rash. Neurological: Negative for headaches, weakness or numbness. 10 point ROS negative except as marked above and in HPI. Physical Exam - Vital signs Vitals: Temp Pulse Resp BP Pulse Ox 97.7 F 99 17 104/81 97 09/23/19 00:59 09/23/19 00:59 09/23/19 00:59 09/23/19 00:59 09/23/19 00:59 - Notes Notes: PHYSICAL EXAMINATION: Physical Exam: General: Well-nourished npht--jtxi-old female moderate distress secondary to left foot pain HEENT: NC/AT, pupils equal round and reactive to light, MM moist,nares clear, oropharynx clear, airway patent Neck: supple, no adenopathy, no masses. Good range of motion Lungs: clear, no wheezing, no rales no rhonchi CVS: Regular rate and rhythm no murmur gallop or rub Abdomen: Soft, active, nontender, no masses, no hepatosplenomegaly Ext: Left foot with a area of erythema noted on the dorsal aspect of the distal left foot, no deformity is noted, no ecchymosis or bruising. The fourth toe, left foot with swelling and discoloration in the toe itself. Neuro: Alert and responsive, moving all 4 extremities on command, cranial nerves intact, no focal findings Skin: Intact no open lesions, no rash PSYCH: Normal mood, normal affect. Course - Vital Signs Vital signs: Temp Pulse Resp BP Pulse Ox 97.8 F 93 20 116/60 97 09/23/19 03:24 09/23/19 03:24 09/23/19 03:24 09/23/19 03:24 09/23/19 03:24 Discharge - Discharge Clinical Impression: Contusion of left foot Qualifiers: Encounter type: initial encounter Qualified Code(s): S90.32XA - Contusion of left foot, initial encounter Contusion of fourth toe of left foot Qualifiers: Encounter type: initial encounter Qualified Code(s): S90.122A - Contusion of left lesser toe(s) without damage to nail, initial encounter Condition: Good Disposition: HOME, SELF-CARE Instructions: Contusion ([facility]) Additional Instructions: You are diagnosed with a contusion to the left foot, wear the Oswaldo wrap and postop shoe for comfort. Use the medications for pain, elevate, ice and wear compression as noted. Follow-up with your primary care doctor as needed HOME CARE INSTRUCTIONS & INFORMATION: Thank you for choosing us for your medical needs. We hope you're satisfied with the care you received. After you leave, you must properly care for your problem and, at the same time, observe its progress. Any condition can change. Some illnesses can change rapidly over hours or days. If your condition worsens, return to the Emergency Department or see your physician promptly. ABOUT YOUR X-RAYS AND EKG'S: If you had an EKG or X-rays taken, they have been read by the Emergency Physician. The X-rays and EKG's will also be read by a Radiologist or Field Staff Manager within 24 hours. If discrepancies are noted, you will be notified by telephone. Please be certain the ED has a correct telephone number & address where you can be reached. Also, realize that some fractures or abnormalities do not show up on initial X-rays. If your symptoms continue, see your physician. ABOUT YOUR LABORATORY TEST: If you had laboratory tests, the results have been reviewed by the Emergency Physician. Some test results (for example cultures) may not be available for several days. You will be contacted if any test result shows you need additional treatment. Please be certain the ED has a correct telephone number and address where you can be reached. ABOUT YOUR MEDICATIONS: You will receive instructions on how to take your medicine on the prescription label you receive. Additional information may be provided by the Pharmacy. If you have questions afterwards, call the ED for clarification or further instructions. Some prescribed medications may cause drowsiness. Do not perform tasks such as driving a car or operating machinery without consulting your Pharmacist. If you feel you need a refill of pain medication, your condition will need re-evaluation. Please do not call for a refill of any medication. ABOUT YOUR SIGNATURE: Signature of this document acknowledges to followin. Understanding that you received emergency treatment and that you may be released before al medical problems are known or treated. Please be certain the ED has a correct phone number & address where you can be reached. 2. Acknowledgement that you will arrange for follow-up care as recommended. 3. Authorization for the Emergency Physician to provide information to your follow-up Physician in order to maximize your care. AT ANY TIME, IF YOUR SYMPTOMS CHANGE SIGNIFICANTLY OR WORSEN OR YOU DEVELOP NEW SYMPTOMS, RETURN TO THE EMERGENCY DEPARTMENT IMMEDIATELY FOR RE-EVALUATION. OUR GOAL IS TO PROVIDE EXCELLENT MEDICAL CARE! WE HOPE THAT WE HAVE MET YOUR EXPECTATIONS DURING YOUR EMERGENCY DEPARTMENT VISIT AND THAT YOU FEEL YOU HAVE RECEIVED EXCELLENT CARE!
--- NOTE | 2019-09-23 02:54 | RADIOLOGY REPORT (SQ) ---
EXAM DESCRIPTION: XR ANKLE 3 OR MORE VIEWS COMPLETED DATE/TME: 09/23/2019 01:09 CLINICAL HISTORY: 24 years, Female, pain s/p injury COMPARISON: None. NUMBER OF VIEWS: Three TECHNIQUE: Three views of the left ankle LIMITATIONS: None. FINDINGS: There is no acute fracture or dislocation. The ankle mortise is intact. No large soft tissue swelling. No radiopaque foreign body. IMPRESSION: No acute fracture or dislocation copyright 2010 [employer]- All Rights Reserved
--- NOTE | 2019-09-23 02:55 | RADIOLOGY REPORT (SQ) ---
EXAM DESCRIPTION: XR FOOT 3 OR MORE VIEWS COMPLETED DATE/TME: 09/23/2019 01:09 CLINICAL HISTORY: 24 years, Female, pain s/p injury COMPARISON: None. NUMBER OF VIEWS: Three TECHNIQUE: Three views of the left foot LIMITATIONS: None. FINDINGS: There is no acute fracture or dislocation. No large soft tissue swelling. No radiopaque foreign body. IMPRESSION: No acute fracture or dislocation copyright 2010 [employer]- All Rights Reserved
[2019-09-23 03:25] VITALS: BP 116/60
== END 2019-09-23 03:41 | disposition home or self-care (01) ==
LOC: ER 00:39
DX: S90.32XA Contusion of left foot, initial encounter (principal); S90.122A Contusion of left lesser toe(s) without damage to nail, initial encounter; M79.605 Pain in left leg; M79.675 Pain in left toe(s); M79.89 Other specified soft tissue disorders; W22.03XA Walked into furniture, initial encounter; F17.200 Nicotine dependence, unspecified, uncomplicated; J45.909 Unspecified asthma, uncomplicated
CPT/HCPCS: 99283; 73610; 73630; J3490; S0119

== ENCOUNTER 2020-05-11 22:55 | Emergency (ER) | payer MEDICAID ==
[2020-05-11] MEDS ORDERED: PREDNISONE 20 MG TABLET PO ONE (23:15)
[2020-05-11] MEDS ORDERED: IPRATROPIUM/ALBUTEROL 0.5-2.5 MG/3 ML AMPUL NEB ONE (23:15)
--- NOTE | 2020-05-11 23:22 | ER Document Report ---
ED General - General Chief Complaint: Asthma Exacerbation Stated Complaint: ASTHMA ISSUES Time Seen by Provider: 05/11/20 23:09 Primary Care Provider: [facility] [Provider Group] - Follow up as needed TRAVEL OUTSIDE OF THE [place] IN LAST 30 DAYS: No - HPI Notes: Patient is a 25 y/o female who presents for asthma exacerbation that have been worsening in the past 4 months. Patient states she has been using her albuterol inhaler daily and is unable to lay flat at night while she sleeps. Patient endorses shortness of breath, chest tightness and wheezing. She denies fever, cough, sore throat and any sick contacts. She ran out of her inhaler yesterday and had to use her mom's inhaler today. She reports using her [id number]'s supplemental oxygen at times for relief. Her PCP is Dr. Hall but she states she has been unable to get an appointment. - Related Data Allergies/Adverse Reactions: Penicillins Allergy (Verified 05/11/20 23:08) Home Medications: ALBUTEROL INHALER Past Medical History - General Information source: Patient - Social History Smoking Status: Former Smoker Frequency of alcohol use: None Drug Abuse: None Family History: Reviewed & Not Pertinent Patient has homicidal ideation: No Pulmonary Medical History: Reports: Hx Asthma Renal/ Medical History: Denies: Hx Peritoneal Dialysis Psychiatric Medical History: Reports: Hx Anxiety, Hx Depression Review of Systems - Review of Systems Constitutional: No symptoms reported EENT: No symptoms reported Cardiovascular: See HPI Respiratory: See HPI Gastrointestinal: No symptoms reported Genitourinary: No symptoms reported Female Genitourinary: No symptoms reported Musculoskeletal: No symptoms reported Skin: No symptoms reported Hematologic/Lymphatic: No symptoms reported Neurological/Psychological: No symptoms reported Physical Exam - Vital signs Vitals: Temp Pulse Resp BP Pulse Ox 98.2 F 88 17 135/80 H 96 05/11/20 23:03 05/11/20 23:03 05/11/20 23:03 05/11/20 23:03 05/11/20 23:03 - Notes Notes: PHYSICAL EXAMINATION: VITALS: Vitals reviewed and within normal limits. GENERAL: Well-appearing, well-nourished and in no acute distress. HEAD: Atraumatic, normocephalic. ENT: Nares patent. Moist mucous membranes. Oropharynx clear without exudates. LUNGS: Inspiratory and expiratory wheezing noted throughout bilaterally. No rales or rhonchi. No increased work of breathing noted. No accessory muscle use. HEART: Regular, rate, and rhythm without murmurs. EXTREMITIES: Normal range of motion, no pitting or edema. No cyanosis. NEUROLOGICAL: No focal neurological deficits. Moves all extremities spontaneously and on command. PSYCH: Normal mood, normal affect. SKIN: Warm, Dry, normal turgor, no rashes or lesions noted. Course - Re-evaluation Re-evalutation: Patient is a 25-year-old female with a history of asthma who presents for asthma exacerbation that has been worsening for the past 4 months. She ran out of her albuterol inhaler yesterday prompting her to come in this evening. Vital signs are within normal limits and patient is oxygenating well. On exam, inspiratory and expiratory wheezes noted throughout bilaterally with no labored respirations. DuoNeb x2 and 60 mg of PO prednisone ordered. Chest x-ray negative. Patient reassessed after breathing treatment and wheezing has improved throughout. Patient reports feeling jittery and nauseous, 25 mg of Phenergan ordered. Patient will be discharged home with a prescription for prednisone and an albuterol inhaler. Discussed the importance of prompt follow- up with her primary care provider as well as discussing stepping up her current treatment for her asthma. Return precautions and follow-up instructions given. Patient understands and is in agreement with plan. - Vital Signs Vital signs: Temp Pulse Resp BP Pulse Ox 98.8 F 88 18 124/72 98 05/12/20 00:19 05/12/20 00:19 05/12/20 00:19 05/12/20 00:19 05/12/20 00:19 Discharge - Discharge Clinical Impression: Shortness of breath Asthma exacerbation Qualifiers: Asthma severity: mild Asthma persistence: unspecified Qualified Code(s): J45.901 - Unspecified asthma with (acute) exacerbation Condition: Stable Disposition: HOME, SELF-CARE Additional Instructions: Asthma You were seen for an asthma exacerbation. Your symptoms improved with treatment here in the emergency department. However, it is very important that you return to the emergency department immediately if you began to have worsening difficulty breathing that does not respond to your normal home nebulizers. You are also being sent home on a five-day course of steroids that you should start taking tomorrow. Please also follow closely with your primary care physician. you should also return to emergency department if you develop fever greater than 101, persistent cough, persistent vomiting, pass out, or any other symptoms that are concerning to you. Prescriptions: Prednisone [Deltasone 20 mg Tablet] 60 mg PO DAILY 5 Days #15 tablet Albuterol Sulfate [Proair HFA Inhalation Aerosol 8.5 gm MDI] 1 puff IH Q4 PRN #1 mdi PRN Reason: Referrals: [facility] [Provider Group] - Follow up as needed
--- NOTE | 2020-05-11 23:47 | RADIOLOGY REPORT (SQ) ---
EXAM DESCRIPTION: XR CHEST 1 VIEW COMPLETED DATE/TME: 05/11/2020 23:15 CLINICAL HISTORY: 25 years, Female, shortness of breath COMPARISON: None. NUMBER OF VIEWS: 1 TECHNIQUE: Portable chest LIMITATIONS: None. FINDINGS: The heart size is normal. The lungs are clear. No pneumothorax IMPRESSION: Negative chest copyright 2011 [employer]- All Rights Reserved
[2020-05-12] MEDS ORDERED: PROMETHAZINE HCL 25 MG TABLET PO ONE (00:09)
[2020-05-12 00:20] VITALS: BP 124/72
== END 2020-05-12 00:19 | disposition home or self-care (01) ==
LOC: ER 22:55
DX: J45.901 Unspecified asthma with (acute) exacerbation (principal); R06.02 Shortness of breath; R07.9 Chest pain, unspecified; Z88.0 Allergy status to penicillin; Z79.899 Other long term (current) drug therapy; Z87.891 Personal history of nicotine dependence
CPT/HCPCS: 94640; 99283; 71045; J7512; J3490